=== PATIENT | male | born 1950 | race Hispanic/Latino ===

== ENCOUNTER 2018-09-09 09:25 | Emergency (ER) | payer OTHER ==
[~2018-09-09] VITALS: Ht 167.6 cm; Wt 72.6 kg
[2018-09-09] MEDS ORDERED: MECLIZINE HCL 12.5 MG TAB PO ONE (10:00)
[2018-09-09] MEDS ORDERED: CILOSTAZOL100 MG PO (10:22)
[2018-09-09] MEDS ORDERED: VASOTEC10 MG PO (10:22)
[2018-09-09] MEDS ORDERED: CARBIDOPA-LEVO1 EACH PO (10:22)
[2018-09-09] MEDS ORDERED: PRAVASTATIN SOD20 MG PO (10:22)
[2018-09-09] MEDS ORDERED: METFORMIN HCL500 MG PO (10:22)
[2018-09-09] MEDS ORDERED: GLIMEPIRIDE2 MG PO (10:22)
[2018-09-09] MEDS ORDERED: PIOGLITAZONE30 MG PO (10:22)
[2018-09-09] MEDS ORDERED: ALENDRONATE SOD10 MG PO (10:22)
[2018-09-09 10:44] VITALS: BP 141/67
== END 2018-09-09 10:40 | disposition home or self-care (01) ==
LOC: FSED 09:25
DX: R42 Dizziness and giddiness (principal); H81.12 Benign paroxysmal vertigo, left ear
CPT/HCPCS: 93005; 99283

== ENCOUNTER 2019-07-15 08:53 | Emergency (ER) | payer MEDICARE, OTHER ==
[~2019-07-15] VITALS: Ht 167.6 cm; Wt 72.6 kg
[~2019-07-15 08:53] MED LIST: ALENDRONATE SOD10 MG PO; CARBIDOPA-LEVO1 EACH PO; CILOSTAZOL100 MG PO; GLIMEPIRIDE2 MG PO; METFORMIN HCL500 MG PO; PIOGLITAZONE30 MG PO; PRAVASTATIN SOD20 MG PO; VASOTEC10 MG PO
--- NOTE | 2019-07-15 09:50 | NUR ---
WENT TO DC PT AND PT'S BECAME VERY ANGRY AND PASSIVELY THREW PAPERS TO TABLE STATING SHE HADNT SEEN A DR YET AND WANTED XRAY'S AND CAT SCANS DONE TO "FIND OUT WHY HE HAS PAIN." PT/ DECLINED D/C AND RX FOR 3 MONTHS OF PTS PARKINSON'S MEDICATION WHICH HE HAS BEEN OUT OF SINCE HIS NEUOROLGIST RETIRED AND DOESNT HAVE A NEW APPT FOR NEURO UNTIL AUGUST. TRIED TO EXPLAIN TO PT/ THAT HIS PAIN IS FROM EXACERBATION OF HIS PARKINSON'S AND BEING OUT OF MEDS, BUT DEMANDS FURTHER TESTING.
--- NOTE | 2019-07-15 09:55 | NUR ---
RADIOLOGY STUDIES ORDERED PER VERBAL MD ORDERS AND PLACED.
--- NOTE | 2019-07-15 10:22 | NUR ---
MD SPOKE WITH MD SANTIAGO AND MD BECERRA; COLLABORATED DECISIONS PT TO HAVE ER TESTING FINISHED AND D/C HOME PER HERNAN AND FOLLOW UP WITH NEUROLOGY.
--- NOTE | 2019-07-15 10:44 | Diagnostic Imaging Report ---
EXAMINATION: Left shoulder single AP view. CLINICAL HISTORY: Shoulder stiffness. COMPARISON: None. . Discussion: The osseous structures are intact without evidence of acute, displaced fracture or dislocation. No osteolytic or osteoblastic lesions. There is no evidence of a.c. separation. Moderate degenerative changes in the left acromioclavicular joint. Mild degenerative changes at the glenohumeral joint. The soft tissues are normal. Visualized portions of the left lung are clear. IMPRESSION: 1. Limited exam, as only a single AP view was obtained. No acute abnormalities, within the limitations of the exam. 2. Moderate left acromioclavicular and mild glenohumeral degenerative changes Signed by: Dr. Matt Dominguez M.D. on 07/15/2019 10:41 AM
--- NOTE | 2019-07-15 10:45 | Diagnostic Imaging Report ---
EXAMINATION: Right shoulder single AP view. CLINICAL HISTORY: Shoulder stiffness. COMPARISON: None. . Discussion: The osseous structures are intact without evidence of acute, displaced fracture or dislocation. No osteolytic or osteoblastic lesions. There is no evidence of a.c. separation. Mild degenerative changes in the left acromioclavicular joint. Mild degenerative changes at the glenohumeral joint. The soft tissues are normal. Visualized portions of the right lung are clear. IMPRESSION: 1. Limited exam, as only a single AP view was obtained. No acute abnormalities, within the limitations of the exam. 2. Mild left acromioclavicular and glenohumeral degenerative changes Signed by: Dr. Matt Dominguez M.D. on 07/15/2019 10:42 AM
--- NOTE | 2019-07-15 10:50 | Diagnostic Imaging Report ---
History: Pain Comparison studies: None Technique: Axial images were obtained from the skull base to the vertex. Coronal and sagittal reconstructions obtained from the axial data. Dose modulation, iterative reconstruction, and/or weight based adjustment of the mA/kV was utilized to reduce the radiation dose to as low as reasonably achievable. Intravenous contrast: None Findings: Scalp/skull: No abnormalities. No fractures, blastic or lytic lesions. Extra-axial spaces: No masses. No fluid collections. Brain sulci: Mildly prominent. Ventricles: Mild compensatory dilatation. No hydrocephalus. Parenchyma: No abnormal densities. No masses, hemorrhage, acute or chronic cortical vascular insults. Sellar/suprasellar region: No abnormalities Craniocervical junction: Patent foramen magnum. No Chiari one malformation. Incidental findings: Atherosclerotic calcifications in the carotid siphons and vertebral arteries. 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 No acute abnormalities. 2. 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 Ravi White M.D. on 07/15/2019 10:47 AM
--- NOTE | 2019-07-15 10:56 | Diagnostic Imaging Report ---
History: Trauma Comparison studies: None Technique: Axial images were obtained through the cervical region.. Coronal and sagittal images reconstructed from the axial data. Dose modulation, iterative reconstruction, and/or weight based adjustment of the mA/kV was utilized to reduce the radiation dose to as low as reasonably achievable. Intravenous contrast: None Findings: Fractures: None. Soft tissues: No gross abnormalities. Atlantoaxial articulation: Intact. Alignment: Normal lordosis. No scoliosis. Cervicomedullary junction: No abnormalities. The foramen magnum is patent. Vertebrae: No infection or neoplasm. Degenerative changes: Mildly degenerated disc at C4-5, moderately degenerated at C5-6 and C6-7. Foraminal stenosis from C4 to C7 is worse, on the left at C5-6 and on the right at C6-7 due to facet and uncoarthrosis. Severe degenerative spinal canal stenosis at C4-5, mild at C5-6 and moderate C6-7 due to disc osteophyte complexes and calcified ligamenta flava (series 300, image 19, series 402, image 36). IMPRESSION: 1. No acute abnormalities. No fractures 2. Cannot adequately evaluate for ligament, spinal cord and or vascular abnormalities. 3. Degenerative spinal canal stenosis from C4 to C7 is worse (severe) at C4-5. Superimposed degenerative foraminal stenosis is worst on left at C5-6 and on the right at C6-7. Consider a nonemergent cervical spine MRI with contrast for further evaluation. Signed by: Dr. Ravi White M.D. on 07/15/2019 10:53 AM
--- NOTE | 2019-07-15 11:01 | NUR ---
PT GIVEN CD FOR FILMS, PT EDUCATION PARKINSONS, COPIES OF ALL IMAGING STUDIES AND LABS.
--- NOTE | 2019-07-15 11:10 | NUR ---
EXTENSIVE DC TEACHING AND HANDOUTS GIVEN. COFFEE FOR AND PT GIVEN PER REQUEST. TOLERATING PO FLUIDS WELL. ALL QUESTIONS AND CONCERNS ADDRESSED. MD TO ROOM FOR D/C TEACHING WELL.
== END 2019-07-15 11:16 | disposition home or self-care (01) ==
LOC: FSED 08:53
DX: M54.2 Cervicalgia (principal); M25.512 Pain in left shoulder; M25.511 Pain in right shoulder; M54.12 Radiculopathy, cervical region; M19.012 Primary osteoarthritis, left shoulder; M19.011 Primary osteoarthritis, right shoulder; G20 Parkinson's disease; I10 Essential (primary) hypertension; E78.5 Hyperlipidemia, unspecified; E11.21 Type 2 diabetes mellitus with diabetic nephropathy; Z79.84 Long term (current) use of oral hypoglycemic drugs
CPT/HCPCS: 70450; 72125; 80048; 85025; 99284

== ENCOUNTER 2020-04-21 09:42 | Emergency (ER) | payer MEDICARE ==
[~2020-04-21] VITALS: Ht 167.6 cm; Wt 72.6 kg
--- OUTSIDE RECORDS SUMMARY | 2020-04-21 09:45 | XMS REPORT ---
Author Author [facility] t Organization [facility] Address [address] [place] [address] Phone Unavailable Care Team Providers Care Tinner Helper Name Role Phone Malena JEFF MD PCP KAYLA LOPEZ Unavailable Payers Payer Name Policy Type Policy Number Effective Date Expiration Date Aislinn Medrano [facility] [id number] 2018 00:00:00 [facility] Problems This patient has no known problems. Allergies, Adverse Reactions, Alerts This patient has no known allergies or adverse reactions. Medications Ordered Medication Name Filled Medication Name Start Date Stop Da te Current Medication? Ordering Clinician Indication Dosage Frequency Signature (SIG) Comments Components Source Carbidopa/Levodopa (Carbidopa-Levodopa 10-100 Tab) 1 E ach Tablet Carbidopa/Levodopa (Carbidopa-Levodopa 10-100 Tab) 1 Each Tablet Yes 1 Three Times A Day [facility] Cilostazol 100 Mg Tablet Cilostazol 100 Mg Tablet Yes 100 Twice A Day [facility] Enalapril Maleate (Vasotec) 10 Mg Tab Enalapril Maleate (Vasotec) 1 0 Mg Tab Yes 20 Twice A Day [facility] Glimepiride 2 Mg Tablet Glimepiride 2 Mg Tablet Yes 4 Daily [facility] Metformin Hcl 500 Mg Tablet Metformin Hcl 500 Mg Tablet Yes 500 Three Times A Day [facility] Pioglitazone Hcl (Pioglitazone) 30 Mg Tablet Pioglitaz one Hcl (Pioglitazone) 30 Mg Tablet Yes 30 Daily [facility] Pravastatin Sodium 20 Mg Tablet Pravastatin Sodium 20 Mg Tablet Yes 20 Daily [facility] Alendronate Sodium 10 Mg Tablet, 20 Mg Oral Alendronat e Sodium 10 Mg Tablet, 20 Mg Oral 2019-07-15 00:00:00 No 20 Use As Directed [facility] Procedures This patient has no known procedures. Encounters Start Date/Time End Date/Time Encounter Type Admission Type [facility] Care Department Encounter ID Source 2019-07-15 08:53:00 2019-07-15 11:16:00 Departed Emergency Room 1 KAYLA LOPEZ [facility] [id number] [facility] Results Test Description Test Time Test Comments Results Result Comments Source CT C-SPINE W/O - HOPD 2019-07-15 10:47:00 [facility] [address] [place] [address] Patient Name: FRANCHESKA BONILLA MR #: [id number] : 1950 Age/Sex: 68/M Req #: [id number] Adm Physician: Ordered by: KAYLA LOPEZ MD Report #: [id number] Location: [facility] Room/Bed: Procedure: [id number] HOPD/CT C-SPINE W/O - HOPD Exam Date: 07/15/19 Exam Time: 1010 REPORT STATUS: Signed History: Trauma Comparison studies: None Technique: Axial images were obtained through the cervical region.. Coronal and sagittal images reconstructed from the axial data. Dose modulation, iterative reconstruction, and/or weight based adjustment of the mA/kV was utilized to reduce the radiation dose to as low as reasonably achievable. Intravenous contrast: None Findings: Fractures: None. Soft tissues: No gross abnormalities. Atlantoaxial articulation: Intact. Alignment: Normal lordosis. No scoliosis. Cervicomedullary junction: No abnormalities. The foramen magnum is patent. Vertebrae: No infection or neoplasm. Degenerative changes: Mildly degenerated disc at C4-5, moderately degenerated at C5-6 and C6-7. Foraminal stenosis from C4 to C7 is worse, on the left at C5-6 and on the right at C6-7 due to facet and uncoarthrosis. Severe degenerative spinal canal stenosis at C4-5, mild at C5-6 and moderate C6-7 due to disc osteophyte complexes and calcified ligamenta flava (series 300, image 19, series 402, image 36). IMPRESSION: 1. No acute abnormalities. No fractures 2. Cannot adequately evaluate for ligament, spinal cord and or vascular abnormalities. 3. Degenerative spinal canal stenosis from C4 to C7 is worse (severe) at C4-5. Superimposed degenerative foraminal stenosis is worst on left at C5-6 and on the right at C6-7. Consider a nonemergent cervical spine MRI with contrast for further evaluation. Signed by: Dr. Ravi White M.D. on 07/15/2019 10:53 AM Dictated By: RAVI WHITE MD, MD 1053 Transcribed By: LUIS F on 07/15/19 1053 COPY TO: KAYLA LOPEZ MD CT BRAIN WO-HOPD 2019-07-15 10:45:00 [place] [address] Patient Name: FRANCHESKA BONILLA MR #: [id number] : 1950 Age/Sex: 68/M Req #: [id number] Adm Physician: Ordered by: KAYLA LOPEZ MD Report #: [id number] Location: [facility] Room/Bed: Procedure: [id number] HOPD/CT BRAIN WO-HOPD Exam Date: 07/15/19 Exam Time: 1010 REPORT STATUS: Signed History: Pain Comparison studies: None Technique: Axial images were obtained from the skull base to the vertex. Coronal and sagittal reconstructions obtained from the axial data. Dose modulation, iterative reconstruction, and/or weight based adjustment of the mA/kV was utilized to reduce the radiation dose to as low as reasonably achievable. Intravenous contrast: None Findings: Scalp/skull: No abnormalities. No fractures, blastic or lytic lesions. Extra-axial spaces: No masses. No fluid collections. Brain sulci: Mildly prominent. Ventricles: Mild compensatory dilatation. No hydrocephalus. Parenchyma: No abnormal densities. No masses, hemorrhage, acute or chronic cortical vascular insults. Sellar/suprasellar region: No abnormalities Craniocervical junction: Patent foramen magnum. No Chiari one malformation. Incidental findings: Atherosclerotic calcifications in the carotid siphons and vertebral arteries. 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 No acute abnormalities. 2. 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 Ravi White M.D. on 07/15/2019 10:47 AM Dictated By: RAVI LE MD, MD 104 Transcribed By: LUIS F on 07/15/19 104 COPY TO: KAYLA LOPEZ MD [facility] 1VW [facility] 2019-07-15 10:41:00 [place] [address] Patient Name: FRANCHESKA BONILLA MR #: [id number] : 1950 Age/Sex: 68/M Req #: [id number] Adm Physician: Ordered by: KAYLA LOPEZ MD Report #: [id number] Location: [facility] Room/Bed: Procedure: [id number] HOPD/SHOULDER 1VW RT - HOPD Exam Date: 07/15/19 Exam Time: 1020 REPORT STATUS: Signed EXAMINATION: Right shoulder single AP view. CLINICAL HISTORY: Shoulder stiffness. COMPARISON: None. . Discussion: The osseous structures are intact without evidence of acute, displaced fracture or dislocation. No osteolytic or osteoblastic lesions. There is no evidence of a.c. separation. Mild degenerative changes in the left acromioclavicular joint. Mild degenerative changes at the glenohumeral joint. The soft tissues are normal. Visualized portions of the right lung are clear. IMPRESSION: 1. Limited exam, as only a single AP view was obtained. No acute abnormalities, within the limitations of the exam. 2. Mild left acromioclavicular and glenohumeral degenerative changes Signed by: Dr. Miky Dominguez M.D. on 07/15/2019 10:42 AM Dictated By: MIKY DOMINGUEZ MD 1042 Transcribed By: LUIS F on 07/15/19 1042 COPY TO: KAYLA LOPEZ MD SHOULDER 1 [facility]W [facility] 2019-07-15 10:39:00 [place] [address] Patient Name: FRANCHESKA BONILLA MR #: [id number] : 1950 Age/Sex: 68/M Req #: [id number] [facility] Physician: Ordered by: KAYLA LOPEZ MD Report #: [id number] Location: [facility] Room/Bed: Procedure: [id number] HOPD/SHOULDER 1 VW LT - HOPD Exam Date: 07/15/19 Exam Time: 1020 REPORT STATUS: Signed EXAMINATION: Left shoulder single AP view. CLINICAL HISTORY: Shoulder stiffness. COMPARISON: None. . Discussion: The osseous structures are intact without evidence of acute, displaced fracture or dislocation. No osteolytic or osteoblastic lesions. There is no evidence of a.c. separation. Moderate degenerative changes in the left acromioclavicular joint. Mild degenerative changes at the glenohumeral joint. The soft tissues are normal. Visualized portions of the left lung are clear. IMPRESSION: 1. Limited exam, as only a single AP view was obtained. No acute abnormalities, within the limitations of the e xam. 2. Moderate left acromioclavicular and mild glenohumeral degenerative changes Signed by: Dr. Miky Dominguez M.D. on 07/15/2019 10:41 AM Dictated By: MIKY DOMINGUEZ MD 1041 Transcribed By: LUIS F on 07/15/19 1041 COPY TO: KAYLA LOPEZ MD
--- NOTE | 2020-04-21 11:49 | Diagnostic Imaging Report ---
EXAM: KNEE LEFT THREE VIEWS DATE: 04/21/2020 11:19 AM INDICATION: Knee injury/pain COMPARISON: None FINDINGS: There are postsurgical changes from left ivfim-[id number]-mofz amputation. There is no evidence for acute fracture or dislocation. Bony mineralization is diffusely decreased. No focal lytic or blastic abnormality is identified. There is moderate femorotibial joint space narrowing. Vascular calcifications are noted. The surrounding soft tissues are otherwise unremarkable without evidence for radiopaque foreign body or soft tissue gas. IMPRESSION: Post surgical changes from left yywjn-pmp-upag amputation. Otherwise, no acute radiographic abnormality identified within the left knee. Signed by: Dr. Mil Miguel MD on 04/21/2020 11:45 AM
[2020-04-21 12:39] LABS: BASOPHILS % 0.3 % (0.0-1.0); EOSINOPHILS % 0.7 % (0.0-6.0); HEMATOCRIT 35.9 % (38.2-49.6); HEMOGLOBIN 11.7 g/dL (14.0-18.0); LYMPHOCYTES # (AUTO) 1.2 (1.0-3.2); LYMPHOCYTES % 20.2 % (18.0-39.1); MEAN CORPUSCULAR HEMOGLOBIN 28.7 pg (28-32); MEAN CORPUSCULAR HGB CONC 32.6 g/dL (31-35); MEAN CORPUSCULAR VOLUME 88.2 fL (81-99); MONOCYTES # (AUTO) 0.5 (0.2-0.8); NEUTROPHILS # (AUTO) 4.2 (2.1-6.9); NEUTROPHILS % 69.6 % (38.7-80.0); PLATELET COUNT 207 x10e3/uL (140-360); RED BLOOD COUNT 4.07 x10e6/uL (4.3-5.7); RED CELL DISTRIBUTION WIDTH 14.2 % (11.7-14.4)
[2020-04-21 13:06] LABS: ALANINE AMINOTRANSFERASE 11 IU/L (0-55); ALBUMIN 3.9 g/dL (3.5-5.0); ALBUMIN/GLOBULIN RATIO 1.1 (0.8-2.0); ALKALINE PHOSPHATASE 69 IU/L (40-150); ANION GAP 13.6 mmol/L (8-16); BLOOD UREA NITROGEN 18 mg/dL (7-26); BUN/CREATININE RATIO 22 (6-25); CALCIUM 9.6 mg/dL (8.4-10.2); CARBON DIOXIDE 28 mmol/L (22-29); CHLORIDE 103 mmol/L (98-107); CREATININE, SERUM 0.83 mg/dL (0.72-1.25); EST GLOMERULAR FILTRATION RATE > 60 ML/MIN (60-); GLUCOSE 152 mg/dL (74-118); POTASSIUM 4.6 mmol/L (3.5-5.1); SODIUM 140 mmol/L (136-145)
--- NOTE | 2020-04-21 14:10 | Emergency Department Note ---
History of Present Illnes History of Present Illness Chief Complaint: General Medicine Complaints History of Present Illness This is a 69 year old male . Chief Complaint Comment PATIENT IN FROM HOME WITH COMPLAINTS OF LEFT KNEE PAIN; PATIENT [place] AND TWISTED HIS KNEE WHILE WEARING HIS PROSTHETIC LEG. NOW WITH PAIN IN THE KNEE WHEN PUTTING PRESSURE ON IT, STATES HAS BEEN UNABLE TO GET PROSTHETIC LEG ON SINCE THEN. LEFT KNEE SWOLLEN AND TENDER. RATES PAIN 06/30 Historian: Patient Arrival Mode: Car Past Medical/Family History Physician Review I have reviewed the patient's past medical and family history. Any updates have been documented here. 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 Physical Exam Related Data Allergies: Coded Allergies: No Known Allergies (Verified , 02/27/10) Triage Vital Signs Vital Signs Date Time Temp Pulse Resp B/P (MAP) Pulse Ox O2 Delivery O2 Flow Rate FiO2 04/21/20 09:50 96.8 102 20 110/71 97 Physical Exam CONSTITUTIONAL HENT EYES NECK PULMONARY CARDIOVASCULAR GASTROINTESTINAL GENITOURINARY SKIN MUSCULOSKELETAL NEUROLOGICAL PSYCHOLOGICAL Results Laboratory Result Diagram: 04/21/20 1205 04/21/20 1205 Laboratory Laboratory Tests Test 04/21/20 12:05 White Blood Count 6.00 x10e3/uL (4.8-10.8) Red Blood Count 4.07 x10e6/uL (4.3-5.7) Hemoglobin 11.7 g/dL (14.0-18.0) Hematocrit 35.9 % (38.2-49.6) Mean Corpuscular Volume 88.2 fL (81-99) Mean Corpuscular Hemoglobin 28.7 pg (28-32) Mean Corpuscular Hemoglobin Concent 32.6 g/dL (31-35) Red Cell Distribution Width 14.2 % (11.7-14.4) Platelet Count 207 x10e3/uL (140-360) Neutrophils (%) (Auto) 69.6 % (38.7-80.0) Lymphocytes (%) (Auto) 20.2 % (18.0-39.1) Monocytes (%) (Auto) 9.0 % (4.4-11.3) Eosinophils (%) (Auto) 0.7 % (0.0-6.0) Basophils (%) (Auto) 0.3 % (0.0-1.0) Neutrophils # (Auto) 4.2 (2.1-6.9) Lymphocytes # (Auto) 1.2 (1.0-3.2) Monocytes # (Auto) 0.5 (0.2-0.8) Eosinophils # (Auto) 0.0 (0.0-0.4) Basophils # (Auto) 0.0 (0.0-0.1) Absolute Immature Granulocyte (auto 0.01 x10e3/uL (0-0.1) Sodium Level 140 mmol/L (136-145) Potassium Level 4.6 mmol/L (3.5-5.1) Chloride Level 103 mmol/L (98-107) Carbon Dioxide Level 28 mmol/L (22-29) Anion Gap 13.6 mmol/L (8-16) Blood Urea Nitrogen 18 mg/dL (7-26) Creatinine 0.83 mg/dL (0.72-1.25) Estimat Glomerular Filtration Rate > 60 ML/MIN (60-) BUN/Creatinine Ratio 22 (6-25) Glucose Level 152 mg/dL (74-118) Calcium Level 9.6 mg/dL (8.4-10.2) Total Bilirubin 0.4 mg/dL (0.2-1.2) Aspartate Amino Transf (AST/SGOT) 14 IU/L (5-34) Alanine Aminotransferase (ALT/SGPT) 11 IU/L (0-55) Alkaline Phosphatase 69 IU/L (40-150) Total Protein 7.3 g/dL (6.5-8.1) Albumin 3.9 g/dL (3.5-5.0) Globulin 3.4 g/dL (2.3-3.5) Albumin/Globulin Ratio 1.1 (0.8-2.0) Critical Care Time Subsequent provider I assumed direction of critical care for this patient from another provider of my specialty. Assessment & Plan Last Vital Signs Date Time Temp Pulse Resp B/P (MAP) Pulse Ox O2 Delivery O2 Flow Rate FiO2 04/21/20 12:48 88 18 153/71 100 04/21/20 09:50 96.8 Home Meds Reported Medications Metformin Hcl (METFORMIN HCL) 500 Mg Tablet, 500 MG PO TID, #60 TAB 09/09/18 Enalapril Maleate (VASOTEC) 10 Mg Tab, 20 MG PO BID, TAB 09/09/18 Glimepiride (GLIMEPIRIDE) 2 Mg Tablet, 4 MG PO DAILY, TAB 09/09/18 Pravastatin Sodium (PRAVASTATIN SODIUM) 20 Mg Tablet, 20 MG PO DAILY 09/09/18 Pioglitazone Hcl (PIOGLITAZONE) 30 Mg Tablet, 30 MG PO DAILY 09/09/18 Carbidopa/Levodopa (CARBIDOPA-LEVODOPA 10-100 TAB) 1 Each Tablet, 1 EACH PO TID, TAB 09/09/18 Cilostazol (CILOSTAZOL) 100 Mg Tablet, 100 MG PO BID, #30 TAB 09/09/18 ANDRES GORDON DO Apr 21, 2020 14:10
[2020-04-21] MEDS ORDERED: ULTRAM50 MG PO (14:16)
[2020-04-21 14:21] VITALS: BP 153/71
== END 2020-04-21 14:29 | disposition home or self-care (01) ==
LOC: ER 09:42
DX: M25.562 Pain in left knee (principal); E11.65 Type 2 diabetes mellitus with hyperglycemia; G20 Parkinson's disease; I10 Essential (primary) hypertension; E78.5 Hyperlipidemia, unspecified; H54.61 Unqualified visual loss, right eye, normal vision left eye; Z89.512 Acquired absence of left leg below knee
CPT/HCPCS: 36415; 80053; 85025; 87040; 99283